=== PATIENT | female | born 1965 | race Two or more races ===

== ENCOUNTER 2017-03-05 05:10 | Inpatient (IN) | payer SELFPAY ==
[~2017-03-05] VITALS: Ht 170.2 cm; Wt 100.2 kg
[2017-03-05 05:54] LABS: Urine Bilirubin Negative (Negative); Urine Blood Negative /uL (Negative); Urine Color Yellow (Yellow); Urine Glucose 4+ mg/dL (Normal); Urine Ketone 1+ (Negative); Urine Mucus FEW (None Seen); Urine Nitrite Negative (Negative); Urine RBC <1 /hpf (0 - 4); Urine Squamous Epithelial Cell FEW /hpf (<5)
[2017-03-05 06:18] LABS: Basophils # (auto) 0 uL; Basophils % (auto) 0.2 % (0.0-2.0); Eosinophils # (auto) 0 uL; Eosinophils % (auto) 0.5 % (0.0-7.0); Hematocrit 41.3 % (36.0-46.0); Hemoglobin 13.7 g/dL (12.2-16.2); Lymphocytes # (auto) 0.7 uL; Lymphocytes % (auto) 10.1 % (10.0-50.0); Mean Corpuscular Hemoglobin 28.1 pg (28.0-32.0); Mean Corpuscular Hgb Conc. 33.2 g/dL (32.0-36.0); Mean Corpuscular Volume 84.8 fL (80.0-100.0); Mean Platelet Volume 10.2 fL (6.9-10.8); Monocytes # (auto) 0.2 uL; Monocytes % (auto) 2.7 % (0.0-12.0); Neutrophils # (auto) 5.6 uL; Neutrophils % (auto) 86.5 % (37.0-80.0); Nucleated Red Blood Cells % 0.1 %; Platelet Count (auto) 107 10^3/uL (140-450); Red Cell Distribution Width 14.8 % (11.8-14.3); White Blood Cell 6.5 10^3/uL (4.4-10.8)
[2017-03-05 06:44] LABS: Albumin 3.3 g/dL (3.4-5.0); BUN/Creatinine Ratio 16.7; Bilirubin, Total 0.7 mg/dL (0.2-1.0); Calcium 8.4 mg/dL (8.5-10.1); Potassium 3.8 mmol/L (3.5-5.1); Total Protein 8.1 g/dL (6.4-8.2)
[2017-03-05] MEDS ORDERED: PANTOPRAZOLE 40 MG/10 ML VIAL IV STA (07:25)
[2017-03-05] MEDS ORDERED: SODIUM CHLORIDE 0.9% 1,000 ML IVB ONE (07:25)
[2017-03-05] MEDS ORDERED: ONDANSETRON HCL 4 MG/2 ML VIAL IV ONE (07:30)
[2017-03-05] MEDS ORDERED: MORPHINE SULFATE 4 MG/ML SYRG IV ONE (07:30)
[2017-03-05 07:43] LABS: Amylase 32 U/L (25-115)
[2017-03-05] MEDS ORDERED: LISI-646 PO (08:06)
[2017-03-05] MEDS ORDERED: GLIP-116 PO (08:06)
[2017-03-05] MEDS ORDERED: LORazepam 0.5 MG TAB PO PRN (08:45)
[2017-03-05] MEDS ORDERED: MORPHINE SULFATE 4 MG/ML SYRG IV PRN (08:45)
[2017-03-05] MEDS ORDERED: PROMETHAZINE HCL 25 MG/ML 1ML IV PRN (08:45)
[2017-03-05] MEDS ORDERED: DEXTROSE (50%) 50ML SYRG IV PRN (08:45)
[2017-03-05] MEDS ORDERED: MORPHINE SULF INJ 2 MG/ML SYRINGE 1ML IV PRN ×2 (08:45)
[2017-03-05] MEDS ORDERED: NITROGLYCERIN 0.4 MG SL TAB SL PRN (08:45)
[2017-03-05] MEDS ORDERED: TEMAZEPAM 15 MG CAP PO PRN (08:45)
[2017-03-05] MEDS: SODIUM CHLORIDE 0.9% 1,000 ML IV SCH ×2 (09:28→18:32)
[2017-03-05] MEDS: cefTRIAXone 1GM/10ml IVPUSH 10 ML IV SCH (09:28)
[2017-03-05] MEDS: InsuLIN REG 1unit/0.01ml Soln (100units/ml) SC SCH ×3 (10:38→20:00)
[2017-03-05] MEDS: ACCU-CHEK COMFORT CURVE STRIP VI SCH ×3 (10:42→20:00)
[2017-03-05] MEDS: LISINOPRIL 10 MG TAB PO SCH (10:45)
[2017-03-05 13:29] LABS: Hepatitis B Surface Antibody Positive
[2017-03-05 15:42] VITALS: BP 142/87
[2017-03-05 17:00] VITALS: BP 142/87
[2017-03-06] MEDS: InsuLIN REG 1unit/0.01ml Soln (100units/ml) SC SCH ×5 (04:00→16:00)
[2017-03-06] MEDS: ACCU-CHEK COMFORT CURVE STRIP VI SCH ×5 (04:00→16:00)
[2017-03-06] MEDS: SODIUM CHLORIDE 0.9% 1,000 ML IV SCH ×2 (04:43→14:43)
[2017-03-06 05:17] VITALS: BP 124/88
[2017-03-06 05:42] LABS: Basophils # (auto) 0 uL; Basophils % (auto) 0.5 % (0.0-2.0); Eosinophils # (auto) 0.1 uL; Eosinophils % (auto) 1.9 % (0.0-7.0); Hematocrit 36.9 % (36.0-46.0); Hemoglobin 12.5 g/dL (12.2-16.2); Lymphocytes # (auto) 1.3 uL; Mean Corpuscular Hemoglobin 28.6 pg (28.0-32.0); Mean Corpuscular Hgb Conc. 33.9 g/dL (32.0-36.0); Mean Corpuscular Volume 84.3 fL (80.0-100.0); Mean Platelet Volume 9.5 fL (6.9-10.8); Monocytes # (auto) 0.2 uL; Monocytes % (auto) 7.7 % (0.0-12.0); Neutrophils # (auto) 1.5 uL; Neutrophils % (auto) 48.9 % (37.0-80.0); Nucleated Red Blood Cells % 0.5 %; Platelet Count (auto) 89 10^3/uL (140-450); Red Cell Distribution Width 14.9 % (11.8-14.3); White Blood Cell 3.1 10^3/uL (4.4-10.8)
[2017-03-06 06:13] LABS: Albumin 2.8 g/dL (3.4-5.0); BUN/Creatinine Ratio 11.9; Bilirubin, Total 0.6 mg/dL (0.2-1.0); Calcium 7.8 mg/dL (8.5-10.1); Potassium 3.3 mmol/L (3.5-5.1); Total Protein 6.7 g/dL (6.4-8.2)
[2017-03-06 06:36] LABS: Amylase 31 U/L (25-115); Cholesterol 89 mg/dL (< 200); HDL Cholesterol 41 mg/dL (40-59); LDL Cholesterol 52 mg/dL (< 100); Triglycerides 82 mg/dL (< 150)
[2017-03-06 08:47] VITALS: BP 120/76
[2017-03-06] MEDS: cefTRIAXone 1GM/10ml IVPUSH 10 ML IV SCH (08:53)
[2017-03-06] MEDS ORDERED: PANTOPRAZOLE 40 MG/10 ML VIAL IV SCH (10:00)
[2017-03-06] MEDS ORDERED: MORPHINE SULFATE 4 MG/ML SYRG IV PRN ×2 (11:15→11:30)
[2017-03-06] MEDS: LISINOPRIL 10 MG TAB PO SCH (12:02)
[2017-03-06 13:45] VITALS: BP 98/57
[2017-03-06] MEDS ORDERED: POTASSIUM CHL 20 Meq TABLET PO ONE (14:15)
[2017-03-06 17:00] VITALS: BP 98/57
== END 2017-03-06 17:21 | disposition home or self-care (01) | DRG 918 ==
LOC: ER 05:11 → TELE 05:12 → TELE-CENTR 16:01
PROVIDERS: ADMIT Internal Medicine; ATTEND Internal Medicine
DX: T62.91XA Toxic effect of unspecified noxious substance eaten as food, accidental (unintentional), initial encounter (principal); D69.6 Thrombocytopenia, unspecified; K74.60 Unspecified cirrhosis of liver; N39.0 Urinary tract infection, site not specified; I10 Essential (primary) hypertension; E87.6 Hypokalemia; E66.9 Obesity, unspecified; F41.9 Anxiety disorder, unspecified; G47.00 Insomnia, unspecified; E11.65 Type 2 diabetes mellitus with hyperglycemia; K76.0 Fatty (change of) liver, not elsewhere classified; B19.20 Unspecified viral hepatitis C without hepatic coma; Z82.49 Family history of ischemic heart disease and other diseases of the circulatory system; Y92.511 Restaurant or cafe as the place of occurrence of the external cause; Z68.34 Body mass index [BMI] 34.0-34.9, adult; Z79.899 Other long term (current) drug therapy; Z83.3 Family history of diabetes mellitus
CPT/HCPCS: 36415; 71010; 74176; 76705; 78226; 80053; 80061; 80307; 81001; 81025; 82150; 82550; 82962; 83036; 83690; 84484; 85025; 85652; 86141; 86704; 86706; 86708; 86803; 87086; 87340; 94761; 96361; 96365; 96375; 96376; C9113; J1815; J2405

== ENCOUNTER 2021-09-10 21:15 | Emergency (ER) | payer MEDICAID ==
[~2021-09-10] VITALS: Ht 167.6 cm; Wt 99.8 kg
[~2021-09-10 21:15] MED LIST: GLIP10TA9 PO; LISI20TA28 PO
[2021-09-10 21:57] VITALS: BP 148/82
[2021-09-11] MEDS ORDERED: KETOROLAC TROMETH 30 MG/ML 1ML VIAL IM ONE
[2021-09-11] MEDS ORDERED: diazePAM 5 MG TAB PO ONE
[2021-09-11] MEDS ORDERED: BACL10TA PO ×2 (00:08→15:21)
== END 2021-09-11 00:23 | disposition home or self-care (01) ==
LOC: ER 21:15
DX: M54.41 Lumbago with sciatica, right side (principal)
CPT/HCPCS: 73502; 96372; 99283; J1885